=== PATIENT | male | born 1955 | race Caucasian/White ===

== ENCOUNTER 2018-07-08 15:34 | Outpatient (CLI) | payer MEDICARE, BC ==
[~2018-07-08] VITALS: Ht 177.8 cm; Wt 99.8 kg
[2018-07-08 16:01] LABS: TOTAL HEMOGLOBIN 16.2 G/dl (14.0-18.0)
[2018-07-08] MEDS ORDERED: albuterol 2.5 MG/3 ML nebule NEB ONE (16:20)
== END 2018-07-08 23:59 | disposition home or self-care (01) ==
LOC: RT 15:34
PROVIDERS: ATTEND Internal Medicine
DX: R06.02 Shortness of breath (principal); R05 Cough
CPT/HCPCS: 85018; 94060; 94727; 94729

== ENCOUNTER 2023-06-13 12:11 | Day surgery (SDC) | payer MEDICARE, BC ==
[2023-06-06 13:15] LABS: BASOPHILS % (AUTO) 0.5 % (0-1); EOSINOPHILS # (AUTO) 0.1 X10'3 (0-0.9); EOSINOPHILS % (AUTO) 2.1 % (0-6); HEMATOCRIT 47.9 % (42.0-52.0); LYMPHOCYTES # (AUTO) 1.5 X10'3 (1.1-4.8); LYMPHOCYTES % (AUTO) 28.5 % (21-51); MEAN CORPUSCULAR HGB CONC 33.4 g/dL (33.0-36.5); MEAN CORPUSCULAR VOLUME 92.7 FL (78-98); MEAN PLATELET VOLUME 8.3 FL (7.4-10.4); MONOCYTES # (AUTO) 0.5 X10'3 (0-0.9); MONOCYTES % (AUTO) 10.4 % (2-12); NEUTROPHILS % (AUTO) 58.5 % (42-75); PLATELET COUNT 204 X10'3 (140-440); RED BLOOD COUNT 5.16 X10'6 (4.70-6.10); RED CELL DISTRIBUTION WIDTH 13.4 % (11.5-14.5); WHITE BLOOD COUNT 5.1 X10'3 (4.5-11.0)
[2023-06-06 13:30] LABS: APTT 31 SECONDS (22-32); PROTHROMBIN TIME 11.2 SECONDS (9.0-12.0)
[2023-06-06 13:35] LABS: ALBUMIN 4.1 G/DL (3.4-5.0); ANION GAP 11 (8-16); BLOOD UREA NITROGEN 17 MG/DL (7-18); BUN/CREATININE RATIO 13.9 (10.0-20.0); CALCIUM 9.3 MG/DL (8.5-10.1); CHLORIDE 101 MMOL/L (99-107); CHOL/HDL RATIO 4.4 (0.00-4.99); CHOLESTEROL 222 MG/DL (0-200); CREATININE 1.22 MG/DL (0.60-1.10); GLUCOSE 93 MG/DL (70-104); HDL CHOLESTEROL 51 MG/DL (35-60); LDL CHOLESTEROL 142 MG/DL (50-100); POTASSIUM 4.3 MMOL/L (3.5-5.1); SODIUM 137 MMOL/L (135-145); TOTAL CARBON DIOXIDE 25.3 MMOL/L (24-32); TRIGLYCERIDES 82 MG/DL (20-135); eGFR 59 ML/MIN
[~2023-06-13] VITALS: Ht 175.3 cm; Wt 103.5 kg
[2023-06-13] VITALS (9 sets, daily range): BP systolic 105–126; BP diastolic 57–73; PULSE 60–66; RESP 14–17; TEMP 98.1; O2SAT 94–98
[2023-06-13] MEDS ORDERED: normal saline 1,000 ML IV SCH (12:25)
[2023-06-13] MEDS ORDERED: diphenhydrAMINE 25mg capsule PO PRN (12:25)
[2023-06-13] MEDS ORDERED: LORazepam 0.5 MG tablet PO PRN (12:25)
[2023-06-13] MEDS ORDERED: heparin 1,000unit/ml 10ml vial 10 ML ONE (12:35)
[2023-06-13] MEDS ORDERED: verapamil 2.5 mg/ml inj IV ONE (12:35)
[2023-06-13] MEDS ORDERED: midazolam 1 mg/ML 2ml injection ONE (12:35)
[2023-06-13] MEDS ORDERED: iohexol 350MG/ML 100ml bottle IV ONE (12:35)
[2023-06-13] MEDS ORDERED: fentaNYL/PF 50MCG/1 ML 2ML syringe ONE (12:35)
[2023-06-13] MEDS ORDERED: nitroGLYCERIN 500mcg/5mL D5W 5 ML IV ONE (12:37)
[2023-06-13] MEDS ORDERED: LIDOcaine 1% (10mg/ml) 2ml vial ONE (12:45)
[2023-06-13 13:09] LABS: BASOPHILS % (AUTO) 0.6 % (0-1); EOSINOPHILS # (AUTO) 0.1 X10'3 (0-0.9); EOSINOPHILS % (AUTO) 1.9 % (0-6); HEMOGLOBIN 16.4 g/dl (14.0-17.9); LYMPHOCYTES # (AUTO) 1.4 X10'3 (1.1-4.8); LYMPHOCYTES % (AUTO) 25.3 % (21-51); MEAN CORPUSCULAR HEMOGLOBIN 31.3 PG (27.0-31.0); MEAN CORPUSCULAR HGB CONC 33.4 g/dL (33.0-36.5); MEAN CORPUSCULAR VOLUME 93.6 FL (78-98); MEAN PLATELET VOLUME 8.4 FL (7.4-10.4); MONOCYTES # (AUTO) 0.5 X10'3 (0-0.9); MONOCYTES % (AUTO) 8.9 % (2-12); NEUTROPHILS # (AUTO) 3.5 X10'3 (1.8-7.7); NEUTROPHILS % (AUTO) 63.3 % (42-75); PLATELET COUNT 210 X10'3 (140-440); RED BLOOD COUNT 5.23 X10'6 (4.70-6.10); RED CELL DISTRIBUTION WIDTH 13.4 % (11.5-14.5); WHITE BLOOD COUNT 5.5 X10'3 (4.5-11.0)
[2023-06-13 13:20] LABS: PROTHROMBIN TIME 10.5 SECONDS (9.0-12.0)
[2023-06-13 13:23] LABS: ALBUMIN 4.3 G/DL (3.4-5.0); ANION GAP 7 (8-16); BLOOD UREA NITROGEN 25 MG/DL (7-18); BUN/CREATININE RATIO 20.7 (10.0-20.0); CALCIUM 9.7 MG/DL (8.5-10.1); CHLORIDE 103 MMOL/L (99-107); CREATININE 1.21 MG/DL (0.60-1.10); GLUCOSE 106 MG/DL (70-104); MAGNESIUM 2.4 MG/DL (1.5-2.4); POTASSIUM 4.6 MMOL/L (3.5-5.1); SODIUM 138 MMOL/L (135-145); TOTAL CARBON DIOXIDE 27.9 MMOL/L (24-32); eCRCL 57 ML/MIN; eGFR 59 ML/MIN
[2023-06-13] MEDS ORDERED: diphenhydrAMINE 50 mg/ml inj ONE (13:35)
[2023-06-13] MEDS ORDERED: LIDOcaine 1% 30ml preserv. free vial ONE (14:03)
[2023-06-13] MEDS ORDERED: ROBDML PO (14:13)
[2023-06-13] MEDS ORDERED: OXYGEN NASALCANN (14:13)
[2023-06-13] MEDS ORDERED: ALPR1TAB2 PO (14:13)
[2023-06-13] MEDS ORDERED: ALB0.5UD NEB (14:13)
[2023-06-13] MEDS ORDERED: FLUT1AER INH (14:13)
[2023-06-13] MEDS ORDERED: OXAZEpam 15mg capsule PO PRN (14:50)
[2023-06-13] MEDS ORDERED: ondansetron/PF 4mg/2ml inj IV PRN (14:50)
[2023-06-13] MEDS ORDERED: proCHLORperazine 10 MG/2 ml inj IV PRN (14:55)
== END 2023-06-13 17:35 | disposition home or self-care (01) ==
LOC: SSTAY O 12:11
PROVIDERS: ATTEND Student in an Organized Health Care Education/Training Program
DX: R07.89 Other chest pain (principal); I25.10 Atherosclerotic heart disease of native coronary artery without angina pectoris; E78.5 Hyperlipidemia, unspecified; I27.20 Pulmonary hypertension, unspecified; I95.1 Orthostatic hypotension; K21.9 Gastro-esophageal reflux disease without esophagitis; Z86.718 Personal history of other venous thrombosis and embolism; Z88.8 Allergy status to other drugs, medicaments and biological substances; Z79.899 Other long term (current) drug therapy; Z79.01 Long term (current) use of anticoagulants
CPT/HCPCS: 36415; 80048; 80061; 83735; 85025; 85610; 85730; 93005; 93458; 99152; J1200; J1644; J2250; J3010; J3490; J7030; Q9967; 99153; A6258; A6402; A6449; C1760; C1894